=== PATIENT | female | born 1970 | race African-American/Black ===

== ENCOUNTER 2024-01-08 20:10 | Outpatient (REF) | payer OTHER, SELFPAY ==
[2024-01-11 19:10] LABS: Age Gdln ACOG Testing Note (.); HPV Aptima Negative (Negative); IGP, Aptima HPV, rfx 16/18,45 Note (.)
== END 2024-01-08 20:11 | disposition home or self-care (01) ==
LOC: LAB 20:10
PROVIDERS: Visit Provider Obstetrics & Gynecology
DX: Z01.419 Encounter for gynecological examination (general) (routine) without abnormal findings (principal)
CPT/HCPCS: G0145

== ENCOUNTER 2025-01-09 14:40 | Outpatient (REF) | payer OTHER, SELFPAY ==
[2025-01-13 16:08] LABS: Age Gdln ACOG Testing Note (.); HPV Aptima Negative (Negative); IGP, Aptima HPV, rfx 16/18,45 Note (.)
== END 2025-01-09 14:41 | disposition home or self-care (01) ==
LOC: LAB 14:40
PROVIDERS: Visit Provider Obstetrics & Gynecology
DX: Z01.419 Encounter for gynecological examination (general) (routine) without abnormal findings (principal)
CPT/HCPCS: 88175